=== PATIENT | male | born 1945 ===

== ENCOUNTER 2024-05-12 06:43 | Inpatient (IN) | payer MEDICARE, SELFPAY ==
[2024-05-12] VITALS (15 sets, daily range): BP systolic 82–134; BP diastolic 55–76; PULSE 75–77; O2SAT 97–98; BMI 27.9
[2024-05-12] MEDS: TYLENOL 650 MG PO (07:47)
[2024-05-12] MEDS: CELEBREX 200 MG PO (07:47)
[2024-05-12] MEDS: NORMOSOL-R/PLASMALYTE-A 1000 IV (07:48)
--- NOTE | 2024-05-12 10:03 | W.PN.ORTHO ---
Today's Communication / Plan
-
D/c when clinically stable.
Assessment
.
Distal Motor Intact: Yes
Dressing:
Clean, dry and intact.
Assessment:
R knee OA s/p R TKA w/ Dr Donohue 05/12/24
DVT prophylaxis - ASA, b/l venous foot pumps
HTN - + parameters - monitor BP
PACs/PVCs,asymptomatic - monitor on tele
- Continue BB
Documented CKD - minimize nephrotoxins
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
- ADR to Omeprazole
BPH - monitor voids
- Add daily Flomax
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
Anemia of neoplastic disease - H&H in AM
HLD
Chronic dyspnea, multifactorial (meds, anemia)
Multilevel DDD w/ stenosis
H/o prostate cancer s/p XRT
Skin CA s/p MOHS
Mild hyponatremia
Prediabetes, A1c 6.2
Plan
.
Surgery / Date: R TKA w/ Dr Donohue 05/12/24
DVT Prophylaxis: Aspirin
Activity:
Out of bed.
PT/OT
Discharge Plan: Home w/ Outpatient PT
Subjective
.
.:
Patient resting comfortably in his chair.
Reports mild R thigh pain, likely 2* tourniquet use in OR.
Denies any new significant complaints.
Vital Signs and Labs
.
Vital Signs and Labs:
Temp Pulse Resp BP Pulse Ox
99 F 94 16 117/76 98
05/12/24 07:30 05/12/24 07:30 05/12/24 07:30 05/12/24 07:30 05/12/24 07:30
Physical Exam
-
HEENT: No pallor, cyanosis, or jaundice. Throat clear.
NECK: Supple. No JVD.
RESPIRATORY: Lungs clear to auscultation.
CVS: S1, S2 normal. RRR.�
ABDOMEN: Soft, non-tender. No distension.
EXTREMITIES: Strength equal, no calf pain with palpation/dorsiflexion. Calves soft.
RICE FARMWORKER: AOx3. No focal deficits. epic beacon specialists grossly intact
[2024-05-12] MEDS: VITAMIN D3 (cholecalciferol) PO (11:54)
[2024-05-12] MEDS: NSS 1000 IV (11:54)
--- NOTE | 2024-05-12 12:11 | PTCARENOTE ---
Pt arrived to 2S in bed. Full assessment completed. Telemetry applied. IVF initiated. R knee primaseal C/D/I. B/L LE's with decreased movement, neurovascular assessment otherwise WDL. Pt instructed to ring for assistance getting OOB, verbalized
understanding. Bed locked and in the lowest position, safety maintained. Oriented to room and call fitzpatrick.
[2024-05-12] MEDS: PEPCID 20 MG PO ×2 (12:27→21:01)
[2024-05-12] MEDS: FOLVITE 1 MG PO (12:27)
[2024-05-12] MEDS: LIDOCAINE 4% PATCH 2 PATCH TOPICAL (13:35)
[2024-05-12] MEDS: ASPIRIN 325 MG PO (17:06)
[2024-05-12] MEDS: ANCEF 5 IV (17:06)
[2024-05-12] MEDS: BACTROBAN 2% OINTMENT 1 APPLIC NASAL (21:00)
[2024-05-12] MEDS: DECADRON 4 MG PO (21:01)
[2024-05-12] MEDS: SENOKOT 17.2 MG PO (21:01)
[2024-05-12] MEDS: COLACE 100 MG PO (21:01)
[2024-05-13] MEDS: ANCEF 5 IV (01:45)
[2024-05-13] MEDS: TYLENOL 650 MG PO (02:03)
[2024-05-13 03:17] VITALS: BP 116/68
[2024-05-13 07:14] VITALS: BP 116/58
[2024-05-13 07:30] LABS: Hematocrit 21.5 % (39.0-52.0); Hemoglobin 7.5 g/dL (13.0-18.0)
[2024-05-13] MEDS: FLOMAX 0.4 MG PO (07:37)
[2024-05-13] MEDS: SENOKOT 17.2 MG PO (07:37)
[2024-05-13] MEDS: TOPROL XL 25 MG PO (07:37)
[2024-05-13] MEDS: LIDOCAINE 4% PATCH 2 PATCH TOPICAL (07:38)
[2024-05-13] MEDS: BACTROBAN 2% OINTMENT 1 APPLIC NASAL (07:38)
[2024-05-13] MEDS: FOLVITE 1 MG PO (07:38)
[2024-05-13] MEDS: DECADRON 4 MG PO (07:38)
[2024-05-13] MEDS: VITAMIN D3 (cholecalciferol) 50 MCG PO (07:38)
[2024-05-13] MEDS: PEPCID 20 MG PO (07:38)
[2024-05-13] MEDS: COLACE 100 MG PO (07:38)
[2024-05-13] MEDS: ASPIRIN 325 MG PO (07:38)
[2024-05-13] MEDS: ULTRAM 50 MG PO (07:45)
[2024-05-13 09:02] VITALS: BP 127/61
--- NOTE | 2024-05-13 10:05 | CM ---
Met with pt at bedside
Pt reports he lives with his in a 1 story home; 2 steps to enter
Independent, active, driving prior to hospitalization
DME - rolling walker, commode, raised toilet seat, cane
SNF - no past hx
HH - Past has used [facility]
Has ride at discharged
PCP - Augustine Piña
Pharm - [facility]
Pt has scheduled appt with outpatient PT at [facility] in [facility] for PT on Thursday 05/17. Has Rx. to transport
Discussed IMM
Plan - anticipate home with outpatient PT
[2024-05-13 11:09] VITALS: BP 116/52
--- NOTE | 2024-05-13 11:58 | W.PN.ORTHO ---
Today's Communication / Plan
-
D/c today since clinically stable, did well w/ PT and OT.
Assessment
.
Distal Motor Intact: Yes
Dressing:
Clean, dry and intact.
Assessment:
R knee OA s/p R TKA w/ Dr Donohue 05/12/24
DVT prophylaxis - ASA, b/l venous foot pumps
HTN - + parameters - BPs overall stable
PACs/PVCs,asymptomatic - maintaining NSR w/ 1st deg AV block on tele
- Continue BB
Documented CKD - minimize nephrotoxins
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
- ADR to Omeprazole
BPH - voiding appropriately w/ Flomax during admission
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
Anemia of neoplastic disease, exacerbated by acute blood loss - Hgb 9.1 pre-op -> 7.5 post-op (? component of hemodilution as he did receive IVF overnight)
- Prefer not to transfuse unless <7 and symptomatic due to infection risk. The patient denies acute complaints and has been hemodynamically stable throughout his admission. His anemia had no impact on his therapy
- Pt to have repeat hgb drawn Friday, 05/17, w/ results to heme
HLD
Chronic dyspnea, multifactorial (meds, anemia)
Multilevel DDD w/ stenosis
H/o prostate cancer s/p XRT
Skin CA s/p MOHS
Mild hyponatremia
Prediabetes, A1c 6.2
Plan
.
Surgery / Date: R TKA w/ Dr Donohue 05/12/24
DVT Prophylaxis: Aspirin
Activity:
Out of bed.
PT/OT
Discharge Plan: Home w/ Outpatient PT
Subjective
.
.:
Patient resting comfortably in his chair.
R knee pain well controlled w/ minimal pain meds.
Acute on chronic anemia noted.
Denies any new significant complaints.
Eager for potential d/c today.
Vital Signs and Labs
.
Vital Signs and Labs:
Lab Results
05/13/24 04:31
Temp Pulse Resp BP Pulse Ox
98.3 F 80 19 116/52 98
05/13/24 11:09 05/13/24 11:09 05/13/24 11:09 05/13/24 11:09 05/13/24 11:09
Physical Exam
-
HEENT: No pallor, cyanosis, or jaundice. Throat clear.
NECK: Supple. No JVD.
RESPIRATORY: Lungs clear to auscultation.
CVS: S1, S2 normal. RRR.�
ABDOMEN: Soft, non-tender. No distension.
EXTREMITIES: Strength equal, no calf pain with palpation/dorsiflexion. Calves soft.
BRASS POLISHER: AOx3. No focal deficits. data assistant grossly intact
--- NOTE | 2024-05-13 12:23 | W.DS.TRANS ---
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
-
Discharge Instructions:
Sleep Apnea Risk Intermediate
Discharge Diagnosis/Procedures R knee OA s/p R TKA w/ Dr Donohue 05/12/24
Diet Other diet
Additional Diets Diabetic carb controlled x1 week for wound
healing/infection prevention
Activity As tolerated,With Walker
Driving Restrictions Not until seen by your Dr
Bathing Restrictions OK to Shower
Blood Work CBC without diff on 05/17/24, with
results to hematology for further anemia follow-
up.
Other Services PT
Wound Care Dressing to be removed 1 week post-surgery.
Instructions:
Stand-Alone Forms: Total Hip/Knee Replacement D/C
Changes to Home Medications: Yes
Discharge Medications:
DC Medications w/original date entered in [employer]
cholecalciferol (vitamin D3) 50 mcg (2,000 unit) capsule (Vitamin D3) 50 mcg PO DAILY Supplement 05/06/24
famotidine 20 mg tablet 20 mg PO BID Gastrointestinal Issue 05/06/24
folic acid 1 mg tablet 1 mg PO DAILY Supplement 05/06/24
methotrexate sodium 2.5 mg tablet 17.5 mg PO QWEEK RHEUMATOID ARTHRITIS 05/06/24
metoprolol succinate 25 mg tablet,extended release 24 hr 25 mg PO DAILY Blood Pressure 05/06/24
acetaminophen 650 mg tablet,extended release 1,300 mg (2 x 650 mg) PO Q8H #30 tabs 05/13/24
aspirin 325 mg tablet 325 mg PO DAILY #30 tabs 05/13/24
dexamethasone 4 mg tablet 4 mg PO BID Anti-inflammatory #7 tabs 05/13/24
docusate sodium 100 mg capsule 100 mg PO BID #30 caps 05/13/24
lidocaine 4 % topical patch 2 patch topical DAILY #30 ea 05/13/24
ondansetron HCl 4 mg tablet 4 mg PO Q6H PRN nausea and vomiting #30 tabs 05/13/24
sennosides 8.6 mg tablet (Senna Laxative) 17.2 mg (2 x 8.6 mg) PO BID #30 tabs 05/13/24
tramadol 50 mg tablet 50 - 100 mg (1 - 2 x 50 mg) PO Q6H PRN moderate-severe pain #30 tabs 05/13/24
valsartan 40 mg tablet 40 mg PO DAILY Blood Pressure #0 tabs 05/13/24
Home Medication Changes
acetaminophen 650 mg tablet,extended release 1,300 mg (2 x 650 mg) PO Q8H #30 tabs 05/13/24
aspirin 325 mg tablet 325 mg PO DAILY #30 tabs 05/13/24
dexamethasone 4 mg tablet 4 mg PO BID Anti-inflammatory #7 tabs 05/13/24
docusate sodium 100 mg capsule 100 mg PO BID #30 caps 05/13/24
lidocaine 4 % topical patch 2 patch topical DAILY #30 ea 05/13/24
ondansetron HCl 4 mg tablet 4 mg PO Q6H PRN nausea and vomiting #30 tabs 05/13/24
sennosides 8.6 mg tablet (Senna Laxative) 17.2 mg (2 x 8.6 mg) PO BID #30 tabs 05/13/24
tramadol 50 mg tablet 50 - 100 mg (1 - 2 x 50 mg) PO Q6H PRN moderate-severe pain #30 tabs 05/13/24
Pending Results: No
== END 2024-05-13 13:08 | disposition home or self-care (01) | DRG 470 ==
LOC: 2 SOUTH 06:43
PROVIDERS: Physician Assistant; ADMITTING PHYSICIAN Orthopaedic Surgery; FAMILY PHYSICIAN Internal Medicine; REFERRING PHYSICIAN Internal Medicine
PROC: 0SRC0J9 Replacement of Right Knee Joint with Synthetic Substitute, Cemented, Open Approach (ICD-10-PCS; 2024-05-12)
DX: M17.11 Unilateral primary osteoarthritis, right knee (principal); C91.90 Lymphoid leukemia, unspecified not having achieved remission; E87.1 Hypo-osmolality and hyponatremia; D62 Acute posthemorrhagic anemia; I12.9 Hypertensive chronic kidney disease with stage 1 through stage 4 chronic kidney disease, or unspecified chronic kidney disease; N18.9 Chronic kidney disease, unspecified; I49.3 Ventricular premature depolarization; K22.719 Barrett's esophagus with dysplasia, unspecified; N40.0 Benign prostatic hyperplasia without lower urinary tract symptoms; D63.0 Anemia in neoplastic disease; E78.5 Hyperlipidemia, unspecified; R73.03 Prediabetes; Z85.46 Personal history of malignant neoplasm of prostate; Z92.3 Personal history of irradiation; Z85.828 Personal history of other malignant neoplasm of skin
CPT/HCPCS: 73560; 85014; 85018; 86850; 86900; 86901; 87070; 97110; 97116; 97163; 97166; 97530; 97535; C1713; C1776

== ENCOUNTER 2024-11-10 05:59 | Inpatient (IN) | payer MEDICARE, SELFPAY ==
[2024-10-14 13:59] LABS: Hematocrit 31.5 % (39.0-52.0); Hemoglobin 10.5 g/dL (13.0-18.0); Mean Corp Hgb Conc. 33.3 g/dL (33.0-37.0); Mean Corpuscular Hgb 30.1 pg (27.0-31.0); Mean Corpuscular Volume 90.3 fL (80.0-94.0); Mean Platelet Volume 10.2 fL (7.4-10.4); Platelet Count 221 10^3/uL (130-400); Red Blood Cell Count 3.49 10^6/uL (4.70-6.10); Red Cell Dist. Width 17.5 % (11.5-14.5); White Blood Cell Count 16.9 10^3/uL (4.8-10.8)
[2024-10-14 14:09] VITALS: BMI 28.8
[2024-10-14 14:32] LABS: Glycohemoglobin (HgbA1c) 6.3 % (4.0-5.6)
[2024-10-14 14:38] LABS: ALT (SGPT) 24 U/L (0-50); AST (SGOT) 57 U/L (17-59); Albumin 4.3 g/dl (3.5-5.0); Alkaline Phosphatase 113 U/L (38-126); Blood Urea Nitrogen 29 mg/dl (9-20); Calcium 9.2 mg/dl (8.4-10.2); Carbon Dioxide 23 mmol/L (22-30); Chloride 102 mmol/L (98-107); Estimated Creatinine Clearance 43 ml/min; Glucose 90 mg/dl (70-99); Potassium 4.6 mmol/L (3.5-5.1); Sodium 136 mmol/L (135-145); Total Protein 6.8 g/dl (6.3-8.2); eGFR > 60.00
[2024-10-14 15:21] VITALS: BMI 28.8
[2024-11-10] VITALS (27 sets, daily range): BP systolic 80–143; BP diastolic 35–77; PULSE 93; O2SAT 97
[2024-11-10] MEDS: NORMOSOL-R/PLASMALYTE-A 1000 IV ×2 (06:25→10:31)
[2024-11-10] MEDS: TYLENOL 650 MG PO ×4 (06:37→21:00)
[2024-11-10] MEDS: CELEBREX 200 MG PO (06:37)
--- NOTE | 2024-11-10 07:56 | W.DS.TRANS ---
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
-
Discharge Instructions:
Sleep Apnea Risk Intermediate
Discharge Diagnosis/Procedures L TKA 11/10/24
Diet As tolerated
Activity With Walker
Driving Restrictions No driving
Bathing Restrictions OK to Shower
Other Services PT
Instructions:
Stand-Alone Forms: Total Hip/Knee Replacement D/C
Changes to Home Medications: Yes
Discharge Medications:
DC Medications w/original date entered in [employer]
cholecalciferol (vitamin D3) 50 mcg (2,000 unit) capsule (Vitamin D3) 50 mcg PO DAILY Supplement 05/06/24
famotidine 20 mg tablet 20 mg PO BID Gastrointestinal Issue 05/06/24
folic acid 1 mg tablet 1 mg PO DAILY Supplement 05/06/24
metoprolol succinate 25 mg tablet,extended release 24 hr 25 mg PO DAILY Blood Pressure 05/06/24
valsartan 40 mg tablet 40 mg PO DAILY Blood Pressure #0 tabs 05/13/24
Nivestym 1 dose IM DIRECTED 10/12/24
loratadine 10 mg tablet (Claritin) 10 mg PO DAILYPRN PRN ALLERGY 10/12/24
mupirocin 2 % topical ointment 1 applic intranasal BID #1 tube 10/14/24
Saccharomyces boulardii 250 mg capsule (Florastor) 250 mg PO BID #1 cap 11/10/24
acetaminophen 325 mg tablet (Tylenol) 650 mg (2 x 325 mg) PO QID #1 tab 11/10/24
aspirin 325 mg tablet 325 mg PO DAILY blood clot prevention #1 tab 11/10/24
cefadroxil 500 mg capsule 500 mg PO BID infection prevention #14 caps 11/10/24
celecoxib 200 mg capsule 200 mg PO DAILY Anti-inflammatory #14 caps 11/10/24
dexamethasone 4 mg tablet 4 mg PO BID inflammation #6 tabs 11/10/24
docusate sodium 100 mg capsule (Colace) 100 mg PO BID stool softner #1 cap 11/10/24
gabapentin 300 mg capsule 300 mg PO HS sleep/pain #10 caps 11/10/24
magnesium hydroxide 400 mg/5 mL oral suspension (Milk of Magnesia) 30 ml PO HS PRN Constipation #1 mL 11/10/24
ondansetron 4 mg disintegrating tablet 4 mg PO Q6H PRN n/v #20 tabs 11/10/24
sennosides 8.6 mg tablet (Senokot) 17.2 mg (2 x 8.6 mg) PO BID laxative #2 tabs 11/10/24
tramadol 50 mg tablet 50 mg PO Q6H PRN 1 tab moderate pain, 2 if severe #30 tabs 11/10/24
Home Medication Changes
mupirocin 2 % topical ointment 1 applic intranasal BID #1 tube 10/14/24
Saccharomyces boulardii 250 mg capsule (Florastor) 250 mg PO BID #1 cap 11/10/24
acetaminophen 325 mg tablet (Tylenol) 650 mg (2 x 325 mg) PO QID #1 tab 11/10/24
aspirin 325 mg tablet 325 mg PO DAILY blood clot prevention #1 tab 11/10/24
cefadroxil 500 mg capsule 500 mg PO BID infection prevention #14 caps 11/10/24
celecoxib 200 mg capsule 200 mg PO DAILY Anti-inflammatory #14 caps 11/10/24
dexamethasone 4 mg tablet 4 mg PO BID inflammation #6 tabs 11/10/24
docusate sodium 100 mg capsule (Colace) 100 mg PO BID stool softner #1 cap 11/10/24
gabapentin 300 mg capsule 300 mg PO HS sleep/pain #10 caps 11/10/24
magnesium hydroxide 400 mg/5 mL oral suspension (Milk of Magnesia) 30 ml PO HS PRN Constipation #1 mL 11/10/24
ondansetron 4 mg disintegrating tablet 4 mg PO Q6H PRN n/v #20 tabs 11/10/24
sennosides 8.6 mg tablet (Senokot) 17.2 mg (2 x 8.6 mg) PO BID laxative #2 tabs 11/10/24
tramadol 50 mg tablet 50 mg PO Q6H PRN 1 tab moderate pain, 2 if severe #30 tabs 11/10/24
Pending Results: No
--- NOTE | 2024-11-10 07:59 | W.PN.UPDATE ---
Update Note
Progress Note Update
L TKA 11/10/24
DVT ppx ASA
Hypotensionin PACU-+ Midodrine and continue IVF
Ambulatory dysfunction-fall precautions
--- NOTE | 2024-11-10 08:48 | SUR.PHASEI ---
patient received sleepy, [place], arousable to name, spinal level at L1; BP 80's/30's. Treated x1 with phenylephrine by ZIPPER SETTER CHAINSTITCH. Dr Frazier called when BP remains in 80's - IV's running wide. Patient is comfortable and responsive, bed in slight
trendelenberg. Dr Frazier visits; agrees with fluid and positioning. No other orders.
--- NOTE | 2024-11-10 09:13 | SUR.PHASEI ---
BP improved to 90's - spinal receding. no pain., Dr Frazier and Fernanda Lazar, ortho PA - updated on vitals and assess.
--- NOTE | 2024-11-10 10:11 | PTCARENOTE ---
Patient admitted from PACU post left total knee arthroplasty.The patient is alert and oriented.He denies any pain.Neurovascular assessment is within normal limits and ongoing.The Mepilex dressing is intact without drainage.The patient is in his bed
with the call fitzpatrick in reach.
[2024-11-10] MEDS: PEPCID 20 MG PO (10:31)
[2024-11-10] MEDS: ProAmatine 5 MG PO ×3 (10:31→17:45)
[2024-11-10] MEDS: TYLENOL PO (10:31)
[2024-11-10] MEDS: ANCEF 5 IV ×2 (14:05→21:05)
[2024-11-10] MEDS: ASPIRIN 325 MG PO (17:46)
[2024-11-10] MEDS: BACTROBAN 2% OINTMENT 1 APPLIC NASAL (21:00)
[2024-11-10] MEDS: DECADRON 4 MG IV (21:00)
[2024-11-10] MEDS: TORADOL 15 MG IV (21:00)
[2024-11-10] MEDS: SENOKOT PO ×2 (21:00→21:18)
[2024-11-10] MEDS: ULTRAM 25 MG PO (21:00)
[2024-11-10] MEDS: NEURONTIN 300 MG PO (21:02)
[2024-11-10] MEDS: COLACE PO ×2 (21:03→21:18)
[2024-11-11] MEDS: TYLENOL PO ×2 (01:00→05:00)
[2024-11-11 03:18] VITALS: BP 124/72
[2024-11-11 07:12] VITALS: BP 123/76
[2024-11-11] MEDS: CELEBREX 200 MG PO (08:47)
[2024-11-11] MEDS: TOPROL XL 25 MG PO (08:48)
[2024-11-11] MEDS: ProAmatine 5 MG PO (08:48)
[2024-11-11] MEDS: ULTRAM 25 MG PO (08:49)
[2024-11-11] MEDS: SENOKOT 17.2 MG PO (08:50)
[2024-11-11] MEDS: TYLENOL 650 MG PO (08:50)
[2024-11-11] MEDS: COLACE 100 MG PO (08:51)
[2024-11-11] MEDS: TORADOL 15 MG IV (08:51)
[2024-11-11] MEDS: ASPIRIN 325 MG PO (08:52)
[2024-11-11] MEDS: DECADRON 4 MG IV (08:52)
[2024-11-11] MEDS: PEPCID 20 MG PO (08:52)
[2024-11-11] MEDS: BACTROBAN 2% OINTMENT 1 APPLIC NASAL (08:53)
[2024-11-11 09:15] VITALS: BP 131/65; BP 144/84; PULSE 77; O2SAT 97
--- NOTE | 2024-11-11 09:22 | CM ---
Addendum entered by Carlie Yousif RN 11/11/24 09:25:
Patient's and daughter are available for transportation and supervision.
Original Note:
Cm reviewed medical records. CM met with patient in room. Patient confirmed demographics. Patient lives independently. Patent does not have a history of VN or SNF. Patient reports that he has a walker for ambulation. Patient has an appointment at
[facility] [place] in [facility] on 11/12 at 1pm. Patient is active with his PCP. Patient uses [facility] in [facility] for medication services.
PLAN: home with outpatient PT.
--- NOTE | 2024-11-11 09:49 | W.PN.ORTHO ---
Today's Communication / Plan
-
d/c
Assessment
.
Distal Motor Intact: Yes
Dressing:
Clean, dry and intact.
Assessment:
Hypotension in PACU-+ Midodrine and IVF-resolved POD#1
Ambulatory dysfunction-fall precautions-stable RW
Plan
.
Surgery / Date: L TKA 11/10/24
DVT Prophylaxis: Aspirin
Activity:
Out of bed.
PT/OT
Discharge Plan: Home w/ Outpatient PT
Subjective
.
.:
Patient resting comfortably.
Vital Signs and Labs
.
Vital Signs and Labs:
Lab Results
10/14/24 13:08
10/14/24 13:08
Temp Pulse Resp BP Pulse Ox
97.6 F 86 17 123/76 96
11/11/24 07:12 11/11/24 07:12 11/11/24 07:12 11/11/24 07:12 11/11/24 07:12
Non-invasive Hgb result: 10.3
Physical Exam
-
HEENT: No pallor, cyanosis, or jaundice. Throat clear.
NECK: Supple. No JVD.
RESPIRATORY: Lungs clear to auscultation.
CVS: S1, S2 normal. RRR.� No murmur, rub or gallop.
ABDOMEN: Soft, non-tender. No distension. BS+/normal.
EXTREMITIES: strength equal, no calf pain with palpation
SEX THERAPIST: AOx3. No focal deficits. phlebotomy supervisor grossly intact
[2024-11-11 10:36] VITALS: BP 140/70; PULSE 69; O2SAT 100
[2024-11-11 11:00] VITALS: BP 141/64
== END 2024-11-11 13:01 | disposition home or self-care (01) | DRG 470 ==
LOC: 2 SOUTH 05:59
PROVIDERS: ADMITTING PHYSICIAN Orthopaedic Surgery; FAMILY PHYSICIAN Internal Medicine
PROC: 0SRD0J9 Replacement of Left Knee Joint with Synthetic Substitute, Cemented, Open Approach (ICD-10-PCS; 2024-11-10)
DX: M17.12 Unilateral primary osteoarthritis, left knee (principal); C91.90 Lymphoid leukemia, unspecified not having achieved remission; N18.9 Chronic kidney disease, unspecified; I12.9 Hypertensive chronic kidney disease with stage 1 through stage 4 chronic kidney disease, or unspecified chronic kidney disease; E78.5 Hyperlipidemia, unspecified; I49.3 Ventricular premature depolarization; I44.0 Atrioventricular block, first degree; R06.00 Dyspnea, unspecified; K21.9 Gastro-esophageal reflux disease without esophagitis; K22.70 Barrett's esophagus without dysplasia; G62.9 Polyneuropathy, unspecified; D64.9 Anemia, unspecified; M10.9 Gout, unspecified; R73.03 Prediabetes; I95.81 Postprocedural hypotension; Z96.651 Presence of right artificial knee joint; Z92.3 Personal history of irradiation; Z85.46 Personal history of malignant neoplasm of prostate; Z85.828 Personal history of other malignant neoplasm of skin; Z87.891 Personal history of nicotine dependence; Z90.49 Acquired absence of other specified parts of digestive tract; Z79.82 Long term (current) use of aspirin; Z79.1 Long term (current) use of non-steroidal anti-inflammatories (NSAID); Z88.5 Allergy status to narcotic agent; Z88.8 Allergy status to other drugs, medicaments and biological substances
CPT/HCPCS: 36415; 73560; 80053; 83036; 85027; 86850; 86900; 86901; 87070; 93005; 97110; 97162; 97166; 97530; 97535; C1713; C1776